=== PATIENT | male | born 1990 | race Hispanic/Latino ===

== ENCOUNTER 2019-03-12 04:25 | Inpatient (IN) | payer OTHER, SELFPAY ==
[2019-03-12] MEDS ORDERED: Adacel (T-DAP) 0.5 ML SYRINGE ONE (04:32)
[2019-03-12 05:13] LABS: Hemoglobin 15.1 g/dL (14.0-18.0); Mean Corpuscular HGB CONC 35.9 g/dL (32.0-36.0); Mean Corpuscular Hemoglobin 31.5 pg (27.0-31.0); Mean Corpuscular Volume 87.8 fL (78.0-98.0); Mean Platelet Volume 7.5 fL (7.4-10.4); Platelet Count 245 thou/uL (130-400); Red Blood Cell (RBC) Count 4.77 mill/uL (4.70-6.10); White Blood Cell (WBC) Count 26.9 thou/uL (4.8-10.8)
[2019-03-12] MEDS ORDERED: Ondansetron PF 4 MG/2 ML Vial ONE ×3 (05:22→16:40)
[2019-03-12] MEDS ORDERED: Fentanyl 100 MCG/2 ML VIAL ONE ×3 (05:26→13:24)
[2019-03-12 05:28] LABS: ALT (SGPT) 153 U/L (8-55); AST (SGOT) 108 U/L (5-34); Albumin 4.2 g/dL (3.5-5.0); Alcohol 201 mg/dL (Less than 10); Alkaline Phosphatase 65 U/L (40-150); Anion Gap 19 mmol/L (10-20); BUN (Urea Nitrogen) 15 mg/dL (8.9-20.6); Bilirubin, Total 0.3 mg/dL (0.2-1.2); Calc. Creatinine Clearance 0 mL/min (70-130); Carbon Dioxide 15 mmol/L (22-29); Chloride 110 mmol/L (98-107); Estimated GFR-MDRD 88; Globulin 2.5 g/dL (2.4-3.5); Glucose 122 mg/dL (70-105); Lipase 23 U/L (8-78); Potassium 3.5 mmol/L (3.5-5.1); Protein, Total 6.7 g/dL (6.0-8.3); Sodium 140 mmol/L (136-145)
[2019-03-12 05:38] LABS: Band 22 % (5-11); Lymphocytes 11 % (21-51); MDiff Complete? YES; Monocytes 8 % (0-10); Neutrophil 56 % (42-75); Platelet Morphology Comment Appears Adequate; Reactive Lymphocytes 3 % (0-10)
[2019-03-12 05:46] LABS: INR-International Normal Ratio 1.2; PTT 26.3 SEC (22.9-36.1); Prothrombin Time 14.8 SEC (12.0-14.7)
[2019-03-12] MEDS ORDERED: Dextrose 50% Abboject 50 ML SYRINGE SLOW IVP PRN (07:08)
[2019-03-12] MEDS ORDERED: hydrALAZINE 20 MG/ML VIAL SLOW IVP PRN (07:08)
[2019-03-12] MEDS ORDERED: Promethazine HCl 25 MG/ML VIAL IM PRN ×3 (07:08→12:58)
[2019-03-12] MEDS ORDERED: Dextrose 5% in Water 1,000 ML IV PRN (07:08)
[2019-03-12] MEDS ORDERED: Cyclobenzaprine 10 MG TAB PO PRN (07:12)
[2019-03-12] MEDS ORDERED: Morphine 4 MG/ML VIAL ONE (07:40)
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
[2019-03-12 09:08] LABS: Lactic Acid 4.2 mmol/L (0.5-2.2)
[2019-03-12] MEDS ORDERED: Midazolam HCl 2 mg/2 ml Vial ONE (09:45)
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
[2019-03-12] MEDS ORDERED: Bacitracin Zinc Ointment 30 gm TUBE ONE (12:13)
[2019-03-12] MEDS ORDERED: Labetalol HCl 100 MG/20 ML VIAL ONE (12:57)
[2019-03-12] MEDS ORDERED: Naloxone HCl 0.4 mg/ml Vial IV PRN (12:58)
[2019-03-12] MEDS ORDERED: diphenhydrAMINE 25 MG CAP PO PRN (12:58)
[2019-03-12] MEDS ORDERED: Ondansetron HCl/PF 4 MG/2 ML Vial IVP PRN (12:58)
[2019-03-12] MEDS ORDERED: diphenhydrAMINE 50 MG/ML VIAL IVP PRN (12:58)
[2019-03-12] MEDS ORDERED: diphenhydrAMINE 50 MG/ML VIAL IM PRN (12:58)
[2019-03-12] MEDS ORDERED: Zolpidem Tartrate 5 MG TAB PO PRN (12:58)
[2019-03-12] MEDS ORDERED: Promethazine HCl 25 MG/ML VIAL SLOW IVP PRN (12:58)
[2019-03-12] MEDS ORDERED: Ondansetron PF 4 MG/2 ML Vial IVP PRN (12:58)
[2019-03-12] MEDS ORDERED: fentaNYL Citrate/PF 2,000 MCG in Sodium Chloride 0.9% 60 ML IV PRN (12:58)
[2019-03-12] MEDS ORDERED: Communication Order-Pharmacy FS SCH (13:00)
[2019-03-12] MEDS ORDERED: CEFAZOLIN 2 GM in Premix Bag 1 BAG IVPB SCH (14:00)
[2019-03-12] MEDS ORDERED: Sodium Chloride 0.9% 1,000 ML IV SCH (14:46)
[2019-03-12] MEDS: Gabapentin 300 MG CAP PO SCH ×3 (15:00→19:55)
[2019-03-12] MEDS: Famotidine 20 MG TAB PO SCH ×2 (15:00→19:54)
[2019-03-12] MEDS: Acetaminophen 1,000 MG in Premix Bag 1 BAG IVPB SCH ×2 (15:01→17:23)
[2019-03-12] MEDS: Senokot S 8.6-50 MG TAB PO SCH ×2 (15:01→19:55)
[2019-03-12] MEDS: Ibuprofen 800 MG TAB PO SCH ×2 (15:01→15:34)
[2019-03-12] MEDS: Polyethylene Glycol 3350 17 GM Packet PO SCH (15:01)
[2019-03-12] MEDS: traMADol HCl 50 MG TAB PO SCH ×2 (15:17→17:22)
[2019-03-12 15:18] VITALS: BMI 25.0
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
[2019-03-12] MEDS: Sodium Chloride 0.9% 1,000 ML IV SCH ×2 (15:33→17:01)
[2019-03-12] MEDS ORDERED: PROPOFOL 200 MG/20 ML VIAL ONE (16:40)
[2019-03-12] MEDS ORDERED: Rocuronium Bromide 10 MG/ML (10ML VIAL) ONE (16:40)
[2019-03-12] MEDS ORDERED: Lidocaine 1% PF 5 ML VIAL ONE (16:40)
[2019-03-12] MEDS ORDERED: Glycopyrrolate 0.2 MG/ML 5 ML SYRINGE ONE (16:40)
[2019-03-12] MEDS ORDERED: Ketorolac Tromethamine 30 MG/ML VIAL ONE (16:40)
[2019-03-12] MEDS: CEFAZOLIN 2 GM in Premix Bag 1 BAG IVPB SCH (17:32)
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
[2019-03-13] MEDS: Acetaminophen 1,000 MG in Premix Bag 1 BAG IVPB SCH ×2 (00:14→05:41)
[2019-03-13] MEDS: traMADol HCl 50 MG TAB PO SCH ×4 (00:15→17:56)
[2019-03-13] MEDS: Ketorolac Tromethamine 30 MG/ML VIAL IVP SCH ×2 (00:15→05:42)
[2019-03-13] MEDS: Sodium Chloride 0.9% 1,000 ML IV SCH ×3 (00:22→17:58)
[2019-03-13] MEDS: CEFAZOLIN 2 GM in Premix Bag 1 BAG IVPB SCH (02:21)
[2019-03-13] MEDS: Ondansetron PF 4 MG/2 ML Vial IVP PRN (03:06)
[2019-03-13 06:14] LABS: Lactic Acid 1.4 mmol/L (0.5-2.2)
[2019-03-13 06:22] LABS: Anion Gap 9 mmol/L (10-20); BUN (Urea Nitrogen) 12 mg/dL (8.9-20.6); Calc. Creatinine Clearance 97 mL/min (70-130); Calcium 7.3 mg/dL (7.8-10.44); Carbon Dioxide 27 mmol/L (22-29); Chloride 104 mmol/L (98-107); Estimated GFR-MDRD 81; Glucose 125 mg/dL (70-105); Magnesium 1.5 mg/dL (1.6-2.6); Phosphorus 2.5 mg/dL (2.3-4.7); Potassium 3.8 mmol/L (3.5-5.1); Sodium 136 mmol/L (136-145)
[2019-03-13 06:34] LABS: CK (CPK) 6651 U/L (30-200)
[2019-03-13 06:47] LABS: #Lymphocytes 1.4 thou/uL (1.20-3.40); #Monocytes 1.3 thou/uL (0.11-0.59); #Neutrophils 6.7 thou/uL (1.40-6.50); %Basophils 0.2 % (0.0-1.0); %Eosinophils 0.2 % (0.0-10.0); %Lymphocytes 14.8 % (21.0-51.0); %Monocytes 13.4 % (0.0-10.0); %Neutrophils 71.4 % (42.0-75.0); Hemoglobin 9.3 g/dL (14.0-18.0); Mean Corpuscular HGB CONC 33.7 g/dL (32.0-36.0); Mean Corpuscular Hemoglobin 30.3 pg (27.0-31.0); Mean Corpuscular Volume 89.9 fL (78.0-98.0); Mean Platelet Volume 6.8 fL (7.4-10.4); Platelet Count 152 thou/uL (130-400); RBC Distribution Width 11.8 % (11.5-14.5); Red Blood Cell (RBC) Count 3.08 mill/uL (4.70-6.10); White Blood Cell (WBC) Count 9.3 thou/uL (4.8-10.8)
[2019-03-13] MEDS: Gabapentin 300 MG CAP PO SCH ×3 (08:39→21:03)
[2019-03-13] MEDS: Polyethylene Glycol 3350 17 GM Packet PO SCH (08:39)
[2019-03-13] MEDS: Senokot S 8.6-50 MG TAB PO SCH ×2 (08:39→21:03)
[2019-03-13] MEDS: Famotidine 20 MG TAB PO SCH ×2 (08:39→21:03)
--- NOTE | 2019-03-13 09:25 | RAD ---
PORTABLE CHEST 1 VIEW: DATE: 03/13/2019. TIME: 7:28 a.m. HISTORY: Small right pneumothorax. FINDINGS/IMPRESSION: Comparison is made with the exam of previous day. The heart size is normal. Multiple right-sided ri b fractures are again seen. No definite pneumothorax is identified. POS: [facility]
--- NOTE | 2019-03-13 10:24 | RAD ---
RIGHT FEMUR 2 VIEWS: HISTORY: Fractures of the proximal and distal aspect of the right femur. FINDINGS/IMPRESSION: Ten spot fluoroscopic intraoperative images of the right femur demonstrate interval reduction and int ernal fixation of the proximal and distal right femur fractures noted on the earlier exam of same arlene e. POS: [facility]
[2019-03-13] MEDS: Acetaminophen 500 MG TAB PO SCH ×2 (12:48→17:56)
[2019-03-13] MEDS: Cyclobenzaprine 10 MG TAB PO PRN (21:03)
[2019-03-14] MEDS: Sodium Chloride 0.9% 1,000 ML IV SCH ×2 (00:56→11:50)
[2019-03-14] MEDS: Acetaminophen 500 MG TAB PO SCH ×4 (00:57→17:40)
[2019-03-14] MEDS: traMADol HCl 50 MG TAB PO SCH ×4 (00:57→17:40)
[2019-03-14] MEDS: traMADol HCl 50 MG TAB PO PRN ×2 (00:59→10:01)
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
[2019-03-14] MEDS: Morphine 4 MG/ML VIAL SLOW IVP PRN ×2 (03:53→09:05)
[2019-03-14] MEDS: Polyethylene Glycol 3350 17 GM Packet PO SCH (09:01)
[2019-03-14] MEDS: Famotidine 20 MG TAB PO SCH ×2 (09:02→21:17)
[2019-03-14] MEDS: Senokot S 8.6-50 MG TAB PO SCH ×2 (09:02→21:16)
[2019-03-14 09:21] LABS: Hemoglobin 8.9 g/dL (14.0-18.0); Mean Corpuscular HGB CONC 34.8 g/dL (32.0-36.0); Mean Corpuscular Volume 89.2 fL (78.0-98.0); Mean Platelet Volume 7.1 fL (7.4-10.4); Platelet Count 158 thou/uL (130-400); RBC Distribution Width 11.6 % (11.5-14.5); Red Blood Cell (RBC) Count 2.86 mill/uL (4.70-6.10); White Blood Cell (WBC) Count 11.1 thou/uL (4.8-10.8)
[2019-03-14 09:35] LABS: Anion Gap 11 mmol/L (10-20); BUN (Urea Nitrogen) 6 mg/dL (8.9-20.6); Calc. Creatinine Clearance 126 mL/min (70-130); Calcium 8.3 mg/dL (7.8-10.44); Carbon Dioxide 24 mmol/L (22-29); Chloride 103 mmol/L (98-107); Estimated GFR-MDRD Greater than 90; Glucose 104 mg/dL (70-105); Magnesium 1.6 mg/dL (1.6-2.6); Phosphorus 2.3 mg/dL (2.3-4.7); Potassium 3.9 mmol/L (3.5-5.1); Sodium 134 mmol/L (136-145)
[2019-03-14 09:46] LABS: Band 10 % (5-11); Lymphocytes 19 % (21-51); MDiff Complete? YES; Monocytes 9 % (0-10); Neutrophil 62 % (42-75); Platelet Morphology Comment Appears Adequate; Polychromasia SLIGHT = 2-3 cells (100X) (0-2/hpf)
[2019-03-14] MEDS: Gabapentin 300 MG CAP PO SCH ×3 (10:00→21:17)
[2019-03-14] MEDS ORDERED: PHOS-NAK 1 PKT PACK PO SCH (11:00)
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
[2019-03-14] MEDS: Cyclobenzaprine 10 MG TAB PO PRN (21:16)
[2019-03-15] MEDS: traMADol HCl 50 MG TAB PO SCH ×5 (00:05→23:21)
[2019-03-15] MEDS: Acetaminophen 500 MG TAB PO SCH ×5 (00:05→23:21)
[2019-03-15 06:03] LABS: Anion Gap 11 mmol/L (10-20); BUN (Urea Nitrogen) 8 mg/dL (8.9-20.6); Calc. Creatinine Clearance 125 mL/min (70-130); Carbon Dioxide 26 mmol/L (22-29); Chloride 100 mmol/L (98-107); Estimated GFR-MDRD Greater than 90; Glucose 106 mg/dL (70-105); Phosphorus 2.9 mg/dL (2.3-4.7); Potassium 4.2 mmol/L (3.5-5.1); Sodium 133 mmol/L (136-145)
[2019-03-15 06:15] LABS: CK (CPK) 5705 U/L (30-200)
[2019-03-15 06:45] LABS: Hemoglobin 9.1 g/dL (14.0-18.0); Mean Corpuscular HGB CONC 33.3 g/dL (32.0-36.0); Mean Platelet Volume 7.2 fL (7.4-10.4); Platelet Count 200 thou/uL (130-400); RBC Distribution Width 11.8 % (11.5-14.5); Red Blood Cell (RBC) Count 3.03 mill/uL (4.70-6.10); White Blood Cell (WBC) Count 11.9 thou/uL (4.8-10.8)
[2019-03-15 07:49] LABS: Band 7 % (5-11); Lymphocytes 10 % (21-51); MDiff Complete? YES; Monocytes 7 % (0-10); Neutrophil 75 % (42-75); Platelet Morphology Comment Appears Adequate; Polychromasia SLIGHT = 2-3 cells (100X) (0-2/hpf); Reactive Lymphocytes 1 % (0-10)
[2019-03-15] MEDS: Morphine 4 MG/ML VIAL SLOW IVP PRN (08:25)
[2019-03-15] MEDS: Senokot S 8.6-50 MG TAB PO SCH ×2 (08:26→20:25)
[2019-03-15] MEDS: Gabapentin 300 MG CAP PO SCH ×3 (08:27→20:25)
[2019-03-15] MEDS: Famotidine 20 MG TAB PO SCH ×2 (08:28→20:25)
[2019-03-15] MEDS: Polyethylene Glycol 3350 17 GM Packet PO SCH (08:28)
[2019-03-15] MEDS: Enoxaparin Sodium 40 MG/0.4 ML SYRINGE SC SCH (09:26)
[2019-03-15] MEDS ORDERED: HYDROcodone/Acetaminophen 7.5/325 mg Tablet PO PRN (14:28)
[2019-03-15] MEDS ORDERED: Scopolamine 1.5 mg/72 hour Patch TD SCH (14:30)
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
[2019-03-15] MEDS: Bacitracin Zinc 1 Packet TOP SCH (20:24)
[2019-03-15] MEDS: cloNIDine 0.1 MG TAB PO SCH (20:24)
[2019-03-15] MEDS: Cyclobenzaprine 10 MG TAB PO PRN (21:47)
[2019-03-16] MEDS: traMADol HCl 50 MG TAB PO SCH ×3 (05:18→18:23)
[2019-03-16] MEDS: Acetaminophen 500 MG TAB PO SCH (05:18)
[2019-03-16] MEDS: Ibuprofen 800 MG TAB PO SCH ×3 (05:18→21:12)
[2019-03-16 06:24] LABS: Band 14 % (5-11); Eosinophils 3 % (0-10); Hemoglobin 8.6 g/dL (14.0-18.0); Lymphocytes 17 % (21-51); MDiff Complete? YES; Mean Corpuscular HGB CONC 34.1 g/dL (32.0-36.0); Mean Corpuscular Hemoglobin 30.7 pg (27.0-31.0); Mean Corpuscular Volume 89.8 fL (78.0-98.0); Mean Platelet Volume 7.3 fL (7.4-10.4); Monocytes 10 % (0-10); Neutrophil 56 % (42-75); Platelet Count 242 thou/uL (130-400); RBC Distribution Width 11.8 % (11.5-14.5); White Blood Cell (WBC) Count 10.6 thou/uL (4.8-10.8)
[2019-03-16 06:34] LABS: Anion Gap 13 mmol/L (10-20); BUN (Urea Nitrogen) 12 mg/dL (8.9-20.6); Calc. Creatinine Clearance 128 mL/min (70-130); Calcium 9.2 mg/dL (7.8-10.44); Carbon Dioxide 26 mmol/L (22-29); Chloride 98 mmol/L (98-107); Estimated GFR-MDRD Greater than 90; Glucose 106 mg/dL (70-105); Potassium 4.5 mmol/L (3.5-5.1); Sodium 132 mmol/L (136-145)
[2019-03-16 06:47] LABS: CK (CPK) 4475 U/L (30-200)
[2019-03-16] MEDS: cloNIDine 0.1 MG TAB PO SCH ×2 (08:39→21:11)
[2019-03-16] MEDS: Enoxaparin Sodium 40 MG/0.4 ML SYRINGE SC SCH (08:40)
[2019-03-16] MEDS: Bisacodyl 5 MG TAB PO SCH (08:40)
[2019-03-16] MEDS: Polyethylene Glycol 3350 17 GM Packet PO SCH (08:40)
[2019-03-16] MEDS: Senokot S 8.6-50 MG TAB PO SCH ×2 (08:41→21:11)
[2019-03-16] MEDS: Gabapentin 300 MG CAP PO SCH ×3 (08:41→21:11)
[2019-03-16] MEDS: Bacitracin Zinc 1 Packet TOP SCH ×2 (08:44→21:11)
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
[2019-03-16] MEDS: Ondansetron PF 4 MG/2 ML Vial IVP PRN (10:49)
[2019-03-16] MEDS: Acetaminophen 325 MG TAB PO SCH ×2 (12:03→18:25)
[2019-03-16] MEDS ORDERED: Milk Of Magnesia 30 ML UDCUP PO SCH (13:45)
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
[2019-03-16] MEDS: Cyclobenzaprine 10 MG TAB PO PRN (21:13)
[2019-03-17] MEDS: Acetaminophen 325 MG TAB PO SCH ×3 (00:03→11:43)
[2019-03-17] MEDS: traMADol HCl 50 MG TAB PO SCH ×3 (00:03→11:43)
[2019-03-17] MEDS: Ibuprofen 800 MG TAB PO SCH (05:59)
[2019-03-17] MEDS ORDERED: Ferrous Sulfate 325 MG TAB PO SCH (08:00)
[2019-03-17] MEDS: cloNIDine 0.1 MG TAB PO SCH (08:04)
[2019-03-17] MEDS: Polyethylene Glycol 3350 17 GM Packet PO SCH (08:04)
[2019-03-17] MEDS: Enoxaparin Sodium 40 MG/0.4 ML SYRINGE SC SCH (08:04)
[2019-03-17] MEDS: Senokot S 8.6-50 MG TAB PO SCH (08:05)
[2019-03-17] MEDS: Bacitracin Zinc 1 Packet TOP SCH (08:05)
[2019-03-17] MEDS: Gabapentin 300 MG CAP PO SCH (08:05)
[2019-03-17] MEDS: Bisacodyl 5 MG TAB PO SCH (08:05)
[2019-03-17] MEDS ORDERED: Ascorbic Acid 500 mg Chewable Tablet PO SCH ×2 (09:00)
[2019-03-17 12:18] VITALS: BP 119/77; TEMP 97.7
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
== END 2019-03-17 14:04 | disposition home or self-care (01) | DRG 956 ==
LOC: ERS 04:25 → SURG A 11:16
PROVIDERS: ADMIT Specialist; ATTEND Specialist
PROC: 0QHB36Z Insertion of Intramedullary Internal Fixation Device into Right Lower Femur, Percutaneous Approach (ICD-10-PCS; principal; 2019-03-12)
PROC: 0QS606Z Reposition Right Upper Femur with Intramedullary Internal Fixation Device, Open Approach (ICD-10-PCS; 2019-03-12)
DX: S72.401A Unspecified fracture of lower end of right femur, initial encounter for closed fracture (principal); S27.1XXA Traumatic hemothorax, initial encounter; S22.31XA Fracture of one rib, right side, initial encounter for closed fracture; N28.0 Ischemia and infarction of kidney; S27.321A Contusion of lung, unilateral, initial encounter; S72.001A Fracture of unspecified part of neck of right femur, initial encounter for closed fracture; S42.111A Displaced fracture of body of scapula, right shoulder, initial encounter for closed fracture; F10.129 Alcohol abuse with intoxication, unspecified; Y90.7 Blood alcohol level of 200-239 mg/100 ml; R40.2362 Coma scale, best motor response, obeys commands, at arrival to emergency department; R40.2142 Coma scale, eyes open, spontaneous, at arrival to emergency department; R40.2252 Coma scale, best verbal response, oriented, at arrival to emergency department; V49.60XA Unspecified car occupant injured in collision with unspecified motor vehicles in traffic accident, initial encounter
CPT/HCPCS: 36415; 70450; 70486; 71045; 71260; 72125; 72170; 74177; 76000; 80048; 80053; 80307; 82550; 83605; 83690; 83735; 84100; 85007; 85025; 85027; 85610; 85730; 86850; 86900; 86901; 90471; 90715; 93005; 94640; 96361; 96365; 96375; 96376; C1713; C1769; G0390; J0131; J0690; J1650; J1885; J2001; J2250; J2270; J2405; J2704; J3010; J3475; J3490; J7620

== ENCOUNTER 2019-03-23 10:47 | Outpatient (CLI) | payer SELFPAY ==
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
== END 2019-03-23 10:48 | disposition home or self-care (01) ==
LOC: RAD 10:47
PROVIDERS: ATTEND Physician Assistant
DX: S22.41XD Multiple fractures of ribs, right side, subsequent encounter for fracture with routine healing (principal); S42.101D Fracture of unspecified part of scapula, right shoulder, subsequent encounter for fracture with routine healing
CPT/HCPCS: 71046

== ENCOUNTER 2019-06-30 07:43 | Day surgery (SDC) | payer OTHER ==
[2019-06-26 09:53] VITALS: BMI 24.2
[2019-06-30] MEDS ORDERED: Fentanyl 100 MCG/2 ML VIAL ONE ×3 (09:29→14:30)
[2019-06-30] MEDS ORDERED: Midazolam HCl 2 mg/2 ml Vial ONE (09:29)
[2019-06-30] MEDS ORDERED: Lidocaine 2% Jelly 5 ML TUBE ONE (11:16)
[2019-06-30] MEDS ORDERED: HYDROmorphone 0.5 MG/0.5 ML SYRINGE ONE ×2 (11:16→12:10)
--- NOTE | 2019-06-30 13:41 | RAD ---
RIGHT FEMUR: Seven fluoroscopic images presented from OR. INDICATION: Open reduction internal fixation right femur. FINDINGS: These images demonstrate internal fixation with intramedullary harman. There is a plate and screw trans fixing the femoral neck. POS: ASHLY
[2019-06-30] MEDS ORDERED: HYDROcodone/Acetaminophen 5/325 mg Tablet ONE ×2 (15:02→16:35)
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
== END 2019-06-30 16:45 | disposition home or self-care (01) ==
LOC: SDC 07:43
PROVIDERS: ATTEND Orthopaedic Surgery
PROC: 3E0T3BZ Introduction of Anesthetic Agent into Peripheral Nerves and Plexi, Percutaneous Approach (ICD-10-PCS; principal; 2019-06-30)
PROC: 0QS604Z Reposition Right Upper Femur with Internal Fixation Device, Open Approach (ICD-10-PCS; principal; 2019-06-30)
DX: S72.351K Displaced comminuted fracture of shaft of right femur, subsequent encounter for closed fracture with nonunion (principal); G89.18 Other acute postprocedural pain; Z87.891 Personal history of nicotine dependence; V89.2XXD Person injured in unspecified motor-vehicle accident, traffic, subsequent encounter
CPT/HCPCS: 76000; C1713; C1769; J0690; J1170; J2250; J3010

== ENCOUNTER 2020-03-13 | Outpatient (CLI) | payer OTHER | END 2020-03-13 06:24 | disposition home or self-care (01) | DX: Z01.812 Encounter for preprocedural laboratory examination (principal); Z11.59 Encounter for screening for other viral diseases; T84.194A Other mechanical complication of internal fixation device of right femur, initial encounter ==

== ENCOUNTER 2020-03-20 10:30 | Day surgery (SDC) | payer OTHER ==
[2020-03-13 12:14] VITALS: BMI 24.6
[2020-03-20] MEDS ORDERED: Fentanyl 100 MCG/2 ML VIAL ONE ×3 (10:52→18:40)
[2020-03-20] MEDS ORDERED: Ketorolac Tromethamine 30 MG/ML VIAL ONE (11:23)
[2020-03-20] MEDS ORDERED: Lidocaine 1% PF 5 ML VIAL ONE (11:23)
[2020-03-20] MEDS ORDERED: Dexamethasone 20 MG/5 ML VIAL ONE (11:23)
[2020-03-20] MEDS ORDERED: Ondansetron PF 4 MG/2 ML Vial ONE (11:23)
[2020-03-20] MEDS ORDERED: PROPOFOL 200 MG/20 ML VIAL ONE (11:23)
[2020-03-20] MEDS ORDERED: Lidocaine 1% (PF) 30 ML VIAL ONE (17:24)
[2020-03-20] MEDS ORDERED: Midazolam HCl 2 mg/2 ml Vial ONE (17:25)
[2020-03-20] MEDS ORDERED: HYDROcodone/Acetaminophen 5/325 mg Tablet ONE (18:41)
--- NOTE | 2020-03-20 21:23 | RAD ---
RIGHT FEMUR ONE VIEW: 03/20/20 HISTORY: Hardware removal. COMPARISON: Radiograph 03/12/19. FINDINGS: A single fluoroscopic image was obtained. IMPRESSION: Fluoroscopy for surgical purposes. POS: HOME
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
== END 2020-03-20 20:00 | disposition home or self-care (01) ==
LOC: SDC 10:30
PROVIDERS: ATTEND Orthopaedic Surgery
PROC: 0YP90JZ Removal of Synthetic Substitute from Right Lower Extremity, Open Approach (ICD-10-PCS; principal; 2020-03-20)
DX: T84.84XA Pain due to internal orthopedic prosthetic devices, implants and grafts, initial encounter (principal); Z79.899 Other long term (current) drug therapy; Z87.891 Personal history of nicotine dependence
CPT/HCPCS: 76000; J1100; J1885; J2001; J2250; J2405; J2704; J3010